=== PATIENT | male | born 2005 | race Caucasian/White ===

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

== ENCOUNTER 2025-04-16 08:54 | Emergency (ER) | payer BC, OTHER ==
[2025-04-16] MEDS: Lidocaine 1% with EPINEPHrine 1:100,000 20 ML MDV INJECT ONE (09:10)
[2025-04-16] MEDS: cefTRIAXone 1 GM, Lidocaine 1% 2.1 ML IM ONE (09:12)
== END 2025-04-16 10:30 | disposition home or self-care (01) ==
LOC: JD.ED 08:54
DX: S71.111A Laceration without foreign body, right thigh, initial encounter (principal); F17.210 Nicotine dependence, cigarettes, uncomplicated; Z86.16 Personal history of COVID-19; W26.0XXA Contact with knife, initial encounter
CPT/HCPCS: 12002; 96372; 99283; J0696; J2003; J2004